=== PATIENT | female | born 1990 | race Hispanic/Latino ===

== ENCOUNTER 2016-11-02 10:01 | Outpatient (CLI) | payer OTHER ==
[2016-11-02 10:22] VITALS: BP 110/63
== END 2016-11-02 11:05 | disposition home or self-care (01) ==
LOC: TRG 10:01
PROVIDERS: ATTEND Obstetrics & Gynecology
DX: O47.1 False labor at or after 37 completed weeks of gestation (principal); Z3A.38 38 weeks gestation of pregnancy

== ENCOUNTER 2016-11-03 05:17 | Inpatient (IN) | payer OTHER ==
[2016-11-03] MEDS ORDERED: LACTATED RINGERS 1,000 ML ONE ×2 (05:54)
[2016-11-03] MEDS ORDERED: REGLAN ONE (05:54)
[2016-11-03] MEDS ORDERED: BICITRA ONE (05:54)
[2016-11-03] MEDS ORDERED: PITOCin/NS 20 UNIT/1000ML DRIP 20,000 MILLIUNITS/1,000 ML BAG IV ONE (05:54)
--- NOTE | 2016-11-03 05:54 | History and Physical Report ---
History of Present Illness Date of examination: 11/03/16 (active labor Pt yony for section due to prior poor obstetrical outcome - shoulder dystocia) Chief complaint: contractions History of present illness: EDC Confirmation: 11/12/2016 Gestational Age: 9 5/7 weeks Past History : 4 Term Births: 2 Living Children: 2 Para: 2 Aborta: 1 Elect. Ab: 1 # 1 Delivery date: 2006 Weeks Gestation: 6 Delivery type: EAB Comments: no complications # 2 Delivery date: 04/2009 Weeks Gestation: 39 Delivery type: Anesthesia type: epidural Delivery location: [facility] Infant Sex: Female weight: 8-7 Comments: difficult delivery Pt states she crowned a long time # 3 Delivery date: 11/2012 Weeks Gestation: 40 Delivery type: Anesthesia type: none Delivery location: [place] Infant Sex: Female weight: 10-.5 Comments: broken clavical / shoulder dystocia Risk Factors: Smoked Tobacco Use: Current every day smoker Cigarettes: Yes -- 3 cigs a day pack(s) per day,Smokeless Tobacco Use: Never Counseled to quit/cut down: yes Passive smoke exposure: no Alcohol use: no Seatbelt use: 100 % Dietary Counseling: pn yes Past Medical History: CF carrier Past Surgical History: Negative Past Surgical History Past Medical History Surgery (Non-vp strategic partnerships): Negative Past Surgical History Abnormal PAP: negative OWEN Exposure: negative Infertility: negative Uterine Anomaly: negative Uterine Surgery (not C/S): negative Other Gynecologic Problems: negative Infection History Hx of STD: none Personal hx. of genital herpes: no Partner hx. of genital herpes: no Rash, Viral, or Febrile illness since last LMP? no Varicella/Chicken Pox Status: Previous Disease TB Risk: no Genetic History Congenital Heart Defect: Mom: no Dad: no Gabriela Disease: Mom: no Dad: no Thalassemia Mom: no Dad: no Neural Tube Defect Mom: no Dad: no Down's Syndrome Mom: no Dad: no Trent-Sachs Mom: no Dad: no Sickle Cell Disease/Trait Mom: no Dad: no Hemophilia Mom: no Dad: no Muscular Dystrophy Mom: no Dad: no Cystic Fibrosis Mom: yes Dad: no Comments: FOB needs to be tested - will have done with PCP Jada Chorea Mom: no Dad: no Mental Retardation Mom: no Dad: no Fragile X Mom: no Dad: no Other Genetic/Chromosomal Disorder Mom: no Dad: no Child w/other defect Mom: no Dad: no Enviromental Exposures Xray Exposure: no Medication, drug, or alcohol use since LMP: no Chemical/Other Exposure: no Exposure to Cat Liter: no Hx of Parvovirus (Fifth Disease): no Occupational Exposure to Children: none Active Medications: None Current Allergies (reviewed today): BACTRIM (Critical) Laboratory Results Date/Time Collected: 04/14/2016 Routine Urinalysis Leukocytes: negative Nitrite: negative Urobilinogen: negative Protein: Negative Blood: negative Ketone: negative Bilirubin: negative Glucose: Negative Urine HCG: positive Review of Systems General Denies fever, chills, sweats, anorexia, fatigue, weakness, malaise, weight loss and sleep disorder. Denies nausea, vomiting, headache, swelling of legs, abdominal pain, vaginal discharge, vaginal bleeding and contractions. Denies vaginal discharge, incontinence, dysuria, hematuria, urinary frequency, amenorrhea, menorrhagia, abnormal vaginal bleeding, pelvic pain, genital sores, decreased libido, painful periods, painful sex, urinary urgency, hot flashes, vaginal dryness, vaginal itching and vaginal odor. CV Denies chest pains, palpitations, syncope, dyspnea on exertion, orthopnea, PND and peripheral edema. Resp Denies cough, dyspnea at rest, excessive sputum, hemoptysis, wheezing and pleurisy. GI Denies nausea, vomiting, diarrhea, constipation, change in bowel habits, abdominal pain, melena, hematochezia, jaundice, gas/bloating, indigestion/ heartburn, dysphagia and odynophagia. Endo Denies cold intolerance, heat intolerance, polydipsia, polyphagia, polyuria and unusual weight change. Breast Denies left breast lump, right breast lump, nipple discharge, bloody discharge from nipple, breast pain, abnormal mammogram and breast enlargement. MS Denies back pain, joint pain, joint swelling, muscle cramps, muscle weakness, stiffness, arthritis, sciatica, restless legs, leg pain at night and leg pain with exertion. Derm Denies rash, itching, dryness and suspicious lesions. Neuro Denies paralysis, paresthesias, headache, seizures, tremors, vertigo, transient blindness, frequent falls, frequent headaches and difficulty walking. Psych Denies depression, anxiety, irritability and mood swings. Eyes Denies blurring, diplopia, irritation, discharge, vision loss, eye pain and photophobia. ENT Denies earache, ear discharge, tinnitus, decreased hearing, nasal congestion, nosebleeds, sore throat and hoarseness. Allergy Denies urticaria, allergic rash, hay fever and recurrent infections. Heme Denies abnormal bruising, bleeding and enlarged lymph nodes. PHYSICAL EXAM HEENT: PERRLA, normal conjunctiva, external nose and nasal mucosa normal, oropharynx clear Neck/Thyroid: supple, thyroid normal Skin no significant abnormal lesions or rashes Chest: respiratory effort normal, clear to auscultation Breasts: normal without skin changes or masses CV: regular, normal S1-S2, no murmur, no rub, no gallop Abdomen: normal bowel sounds, soft, nontender, no HSM Musculoskeletal: grossly normal ROM in joints, no joint tenderness or muscle weakness Neuro: grossly normal DTRs, sensation, strength, cranial nerves Extremities: no clubbing, cyanosis, or edema NURSING TECHN Exams Vulva/Vagina: No lesions, normal BUS, normal rugae Cervix: No lesions; no cervical motion tenderness Uterus: normal size and position, midline, mobile Adnexae: no masses or tenderness Rectovaginal: no masses or tenderness Past History - Obstetrical History Expected Date of Delivery: 11/12/16 Actual Gestation: 38 Week(s) 5 Day(s) : 4 Para: 2 Hx # Term Pregnancies: 2 Induced : 1 Number of Living Children: 2 Medications and Allergies Allergies Allergy/AdvReac Type Severity Reaction Status Date / Time sulfamethoxazole Allergy Itching Verified 11/02/16 10:58 [From Bactrim] trimethoprim [From Bactrim] Allergy Itching Verified 11/02/16 10:58 - Vital Signs Vital signs: Vital Signs Pulse Pulse Ox 31 L 84 11/03/16 05:26 11/03/16 05:26 Temp Pulse Resp BP Pulse Ox 84 112/65 98 11/03/16 05:43 11/03/16 05:27 11/03/16 05:43 - Physical Exam Breasts: Positive: deferred Cardiovascular: Regular rate, Normal S1, Normal S2 Lungs: Positive: Normal air movement Abdomen: Positive: normal appearance, soft, normal bowel sounds. Negative: distention, tenderness Genitourinary (Female): Positive: normal external genitalia Vulva: both: normal Vagina: Positive: normal moisture. Negative: discharge Cervix: Negative: lesion, discharge Uterus: Positive: normal size, normal contour Adnexa: both: normal Anus/Rectum: Positive: normal perianal skin, heme negative. Negative: rectal mass, hemorrhoids Extremities: Positive: edema Deep Tendon Reflex Grade: Normal +2 - Obstetrical FHR: category 1 Uterine Contraction Monitor Mode: External Cervical Dilatation: 4 (per stock sheets cleaner inspector) Uterine Contraction Pattern: Regular Uterine Contraction Intensity: Moderate Results All other labs normal. HBsAg Screen Negative Negative *1 Rubella Antibodies, IgG 4.79 index Immune >0.99 *2 Non-immune <0.90 Equivocal 0.90 - 0.99 Immune >0.99 ABO Grouping A *3 Rh Factor Negative *4 Please note: Prior records for this patient's ABO / Rh type are not available for additional verification. Antibody Screen Negative Negative *5 RPR Non Reactive Non Reactive *6 WBC 8.2 x10E3/uL 3.4-10.8 *7 RBC 4.23 x10E6/uL 3.77-5.28 *8 Hemoglobin 12.1 g/dL 11.1-15.9 *9 Hematocrit 36.5 % 34.0-46.6 *10 MCV 86 fL 79-97 *11 MCH 28.6 pg 26.6-33.0 *12 MCHC 33.2 g/dL 31.5-35.7 *13 RDW 14.2 % 12.3-15.4 *14 Platelets 183 x10E3/uL 150-379 *15 Neutrophils 70 % *16 Lymphs 23 % *17 Monocytes 6 % *18 Eos 1 % *19 Basos 0 % *20 ! Immature Cells <No Reported Value> *21 Neutrophils (Absolute) 5.7 x10E3/uL 1.4-7.0 *22 Lymphs (Absolute) 1.9 x10E3/uL 0.7-3.1 *23 Monocytes(Absolute) 0.5 x10E3/uL 0.1-0.9 *24 Eos (Absolute) 0.1 x10E3/uL 0.0-0.4 *25 Baso (Absolute) 0.0 x10E3/uL 0.0-0.2 *26 ! Immature Granulocytes 0 % *27 ! Immature Grans (Abs) 0.0 x10E3/uL 0.0-0.1 *28 ! NRBC <No Reported Value> *29 Hematology Comments: <No Reported Value> *30 Tests: (2) HB Solu + Rflx Fra (876115) Hemoglobin (Hgb) Solubility Negative Negative *31 Tests: (3) Panel [id number] ([id number]) HIV Screen 4th Generation wRfx Non Reactive Non Reactive *32 Tests: (4) HCV Ab w/Rflx to Verification (721585) ! HCV Ab <0.1 s/co ratio 0.0-0.9 *33 Tests: (5) Comment: ([id number]) ! Comment: SPRCS *34 Non reactive HCV antibody screen is consistent with no HCV infection, unless recent infection is suspected or other evidence exists to indicate HCV infection. Assessment and Plan 25yo @ 38 weeks in active labor. Pt is scheduled for primary section due to previous delivery of macrosomic NB with shoulder dystocia - broken clavicle. SVE 4,80,-2 per stock sheets cleaner inspector. notified Prep pt for c /s He is enroute. Orders in EMR.Pt consented. Ask pt again if she desired to have vaginal delivery , she and SO decline and request to move forward with section.
[2016-11-03] MEDS ORDERED: PEPCID IV ONE ×2 (05:55→06:03)
[2016-11-03] MEDS ORDERED: ANCEF/STERILE WATER 2 GM/20 ML 2 GM/20 ML SYRINGE IV ONE (05:55)
[2016-11-03] MEDS: LACTATED RINGERS 1,000 ML IV SCH ×2 (06:00→06:30)
[2016-11-03] MEDS ORDERED: BICITRA PO ONE (06:03)
[2016-11-03] MEDS ORDERED: REGLAN IV ONE (06:03)
[2016-11-03 06:37] LABS: Basophils % (Auto) 0.2 % (0.0-1.8); Eosinophils % (Auto) 1.1 % (0.0-4.3); Hematocrit 30.9 % (30.3-42.9); Hemoglobin 10.4 gm/dl (10.1-14.3); Mean Corpuscular HGB Conc 34 % (30-34); Mean Corpuscular Hemoglobin 27 pg (28-32); Mean Corpuscular Volume 79 fl (79-97); Platelet Count 150 K/mm3 (140-440); Red Blood Count 3.92 M/mm3 (3.65-5.03); Red Cell Distribution Width 14.2 % (13.2-15.2); White Blood Count 8.7 K/mm3 (4.5-11.0)
[2016-11-03] MEDS ORDERED: MORPHINE ONE (06:48)
[2016-11-03] MEDS ORDERED: ANCEF/STERILE WATER 2 GM/20 ML 2 GM/20 ML SYRINGE IV NR (07:00)
[2016-11-03] MEDS ORDERED: PITOCin/NS 20 UNIT/1000ML DRIP 20 UNITS/1,000 ML BAG IV SCH ×2 (07:00→09:00)
[2016-11-03] MEDS ORDERED: NACL 0.9% IR ONE (07:10)
[2016-11-03] MEDS ORDERED: WATER FOR IRRIG STERILE IR ONE (07:10)
--- NOTE | 2016-11-03 08:36 | Operative Report ---
Operative Report Operative Report: Date of procedure: 11/03/2016 Pre-operative diagnosis: Intrauterine at 38 weeks 5 days with microsomia, previous with shoulder dystocia with clavicle fracture, active labor and desires permanent sterilization Post-operative diagnosis: Same Procedure name(s): Primary low transverse section with bilateral tubal ligation Surgeon: Tanmay Garcia MD Farm Adviser: Anesthesia: Spinal EBL: 900 mL Complications: None Findings: Had a male weight 8 lbs. 9 oz. Apgars 8 at 1 minute 9 at 5 minutes. Had normal appearing uterus with bilateral normal appearing adnexa Specimen(s): Portion of the right and left fallopian tube Procedure: The patient was brought to the operating room. A spinal was placed without any complications. She was then placed in left lateral tilt. Prepped and draped in the usual sterile manner. After testing for adequate anesthesia level, a Pfannenstiel incision was made through her previous scar. This incision was taken down to the fascia. The fascia was then nicked in the midline. This incision was extended out laterally with Jo scissors. The fascia was then sharply and bluntly from the underlying rectus muscles. The rectus muscles were bluntly and sharply . The peritoneum was then entered with the diesel truck crane operator's fingers. This incision was spread vertically with care not to damage the bladder below. The bladder flap was then formed sharply and bluntly with Metzenbaum scissors. The Alessio self- retaining tractor was then placed without any difficulty. A transverse incision was made in lower uterine segment. This incision was extended laterally with the operators fingers. The amniotic sac was then entered bluntly with the diesel truck crane operator's fingers. The was delivered from the vertex position. Bulb suction on the mother's abdomen. Cord was double clamped and cut. The infant was then passed to the nursery personnel who were in attendance. The above scores were given by the nursery personnel. The placenta was then bluntly removed. The uterus was then externalized and wiped clean the remaining products. The uterine incision had a small extension caudally on the right side with no evidence of bladder injury. The uterine incision Was closed in layers. The first incision was closed in a locking manner using 0 Vicryl. This was followed by imbricating stitch also with 0 Vicryl. Attention was then switched to the patient's fallopian tubes. Each fallopian tube was identified by its fimbriated end. A portion of each tube was grabbed with the Héctor clamp approximately 2-3 cm from the cornua. Each loop was double ligated with 0 plain suture. The loop were cut with Metzenbaum scissors. Each stump was found to be hemostatic and cauterized with the Bovie. Attention was then switched back to the uterine closure. This closure was hemostatic. The bladder flap was copiously irrigated and found to be hemostatic. The pelvis was copiously irrigated and found to be hemostatic. The uterus was then placed back to the patient's abdomen. The retractors were removed. The rectus muscles were inspected and found to be hemostatic. The fascia was then closed in a running manner using 0 Vicryl. This incision was hemostatic irrigation Bovie. The skin was reapproximated with 4-0 Vicryl subcuticularly. The patient tolerated procedure well. Her urine was clear. The was admitted to the well baby nursery. The patient was accompanied to recovery room in good condition. Instrument count correct 3.
[2016-11-03] MEDS ORDERED: NARCAN 0.4 MG/1 ML IV PRN ×2 (08:38→09:00)
[2016-11-03] MEDS ORDERED: ZOFRAN IV PRN ×2 (08:38→09:00)
[2016-11-03] MEDS ORDERED: TORADOL IV PRN ×2 (08:39→09:00)
[2016-11-03] MEDS: D5LR 1,000 ML IV SCH ×2 (08:59→17:43)
[2016-11-03] MEDS ORDERED: TUCKS PAD TP PRN (09:00)
[2016-11-03] MEDS ORDERED: DILAUDID IV PRN (09:00)
[2016-11-03] MEDS ORDERED: LANSINOH TP PRN (09:00)
[2016-11-03] MEDS ORDERED: SODIUM CHLORIDE FLUSH SYRINGE 10 ML IV NR ×2 (09:00)
[2016-11-03] MEDS ORDERED: MILK OF MAGNESIA PO PRN (09:00)
[2016-11-03] MEDS ORDERED: NEO SYNEPHRINE/NS Syringe(OR USE) IV ONE (09:00)
[2016-11-03] MEDS: ANCEF/NS 1 GM/50 ML 1 GM/50 ML BAG IV SCH ×2 (11:18→19:18)
--- NOTE | 2016-11-03 14:16 | Post Anesthesia Evaluation ---
- Post Anesthesia Evaluation Patient Participated: Yes Airway Patent: Yes Stable Respiratory Function: Yes Nausea/Vomiting: No Temp > 96.8F: Yes Pain Manageable: Yes Adequeate Hydration: Yes Anesthesia Complications: No Block Receding Appropriately: Yes Patient on Ventilator: No
[2016-11-03] MEDS: BENADRYL IV PRN ×2 (16:48→19:17)
[2016-11-03 22:28] LABS: Hematocrit 26.4 % (30.3-42.9)
[2016-11-04] MEDS: MOTRIN PO PRN ×3 (00:22→17:26)
--- NOTE | 2016-11-04 07:50 | Progress Note ---
Assessment and Plan patient resting in bed with infant, no complaints. Lochia scant, VSSAF, H& 9.6 /26.4 (anemia d/t acute blood loss, asymptomatic.) encouraged ambulation and continued use of ISS. Continue postop pathway. - Patient Problems (1) delivery delivered Current Visit: Yes Status: Acute Subjective - Subjective Date of service: 11/04/16 Principal diagnosis: postop day #1 s/p primary c/s Patient reports: appetite normal, voiding normally, pain well controlled, flatus , ambulating normally, no dizzy ambulation, no nauseated [place]: doing well, bottle feeding Objective - Vital Signs Latest vital signs: Vital Signs Temp Pulse Resp BP Pulse Ox 11/04/16 05:50 20 11/04/16 04:31 98.2 F 86 20 104/52 11/04/16 00:22 20 11/03/16 23:55 98.4 F 92 H 20 117/72 11/03/16 21:08 99.1 F 86 20 119/54 11/03/16 17:00 98.1 F 77 18 118/75 11/03/16 13:36 97.9 F 80 20 117/60 11/03/16 09:30 98.9 F 84 18 116/68 11/03/16 09:10 98.1 F 77 19 118/68 96 11/03/16 09:05 86 17 110/56 97 11/03/16 09:00 85 22 117/68 97 11/03/16 08:55 84 20 110/59 97 11/03/16 08:50 89 21 113/69 97 11/03/16 08:45 85 15 123/78 97 11/03/16 08:40 83 20 123/78 97 11/03/16 08:35 84 14 113/70 97 11/03/16 08:30 88 18 108/80 97 11/03/16 08:25 81 17 122/82 98 11/03/16 08:20 74 17 116/65 97 11/03/16 08:15 76 13 113/66 98 11/03/16 08:10 97.7 F 77 12 112/60 99 11/03/16 08:05 90 16 96 Intake and Output 11/03/16 11/04/16 11/04/16 22:59 06:59 14:59 Intake Total 1480 240 Output Total 600 1000 Balance 880 -760 Intake: IV 1000 D5lr 1,000 ml @ 125 mls/ 1000 hr IV DIRECT PEGGY Rx#: [id number] Oral 480 240 Output: Urine 600 1000 Indwelling Catheter 600 Void 1000 Other: Total, Intake Amount 240 240 Total, Output Amount 400 800 - Exam Breasts: Present: normal Cardiovascular: Present: Regular rate Lungs: Present: Clear to auscultation, Normal air movement Abdomen: Present: normal appearance, soft Vulva: both: normal Uterus: Present: normal, firm, fundal height at umbilicus Extremities: Present: normal Incision: Present: normal, dry, dressed (pt requested to have dressing removed after pain medication) - Labs Labs: Abnormal lab results 11/03/16 Range/Units 21:52 Hgb 9.0 L (10.1-14.3) gm/dl Hct 26.4 L (30.3-42.9) %
[2016-11-04] MEDS: PERCOCET 5/325 PO PRN ×2 (10:06→17:24)
--- NOTE | 2016-11-04 10:53 | Progress Note ---
Subjective Date of service: 11/04/16 Principal diagnosis: postop day #1 s/p primary c/s Interval history: 1st POD after Patient is in the bed, comfortable. Pain is well controlled with pain meds. Ambulated well. No residual neurological deficit. No pruritus. No anesthesia complications Objective - Constitutional Vitals: Vital Signs - 12hr 11/03/16 11/04/16 11/04/16 23:55 00:22 04:31 Temperature 98.4 F 98.2 F Pulse Rate 92 H 86 Respiratory 20 20 20 Rate Blood Pressure 117/72 104/52 11/04/16 11/04/16 05:50 08:00 Temperature 98.2 F Pulse Rate 83 Respiratory 20 18 Rate Blood Pressure 113/62 - Labs CBC & Chem 7: 11/03/16 21:52 Labs: Abnormal lab results 11/03/16 Range/Units 21:52 Hgb 9.0 L (10.1-14.3) gm/dl Hct 26.4 L (30.3-42.9) %
[2016-11-04] MEDS: MYLICON PO PRN ×2 (17:24→23:58)
[2016-11-05] MEDS: MOTRIN PO PRN ×4 (02:00→20:10)
[2016-11-05] MEDS: PERCOCET 5/325 PO PRN ×4 (02:03→20:11)
--- NOTE | 2016-11-05 08:39 | Progress Note ---
Assessment and Plan pt resting quietly on my arrival Requests to go home tomorrow. VSS FF below umb Lochia scant Incision intact, moist from perspiration. Will chg cover dressing more often H&H 12/22 drop r/t blood loss from surgery Pt is asymptomatic Doing well s/p section with tubal P: continue pathway More observant to incision being kept dry. plan d/c tomorrow Subjective - Subjective Date of service: 11/05/16 (pt req d/c tomorrow) Principal diagnosis: postop day #2s/p primary c/s Interval history: EDC Confirmation: 11/12/2016 Gestational Age: 9 5/7 weeks Past History : 4 Term Births: 2 Living Children: 2 Para: 2 Aborta: 1 Elect. Ab: 1 # 1 Delivery date: 2006 Weeks Gestation: 6 Delivery type: EAB Comments: no complications # 2 Delivery date: 04/2009 Weeks Gestation: 39 Delivery type: Anesthesia type: epidural [facility] Infant Sex: Female weight: 8-7 Comments: difficult delivery Pt states she crowned a long time # 3 Delivery date: 11/2012 Weeks Gestation: 40 Delivery type: Anesthesia type: none Delivery location: [place] Sex: Female weight: 10-.5 Comments: broken clavical / shoulder dystocia Risk Factors: Smoked Tobacco Use: Current every day smoker Cigarettes: Yes -- 3 cigs a day pack(s) per day,Smokeless Tobacco Use: Never Counseled to quit/cut down: yes Passive smoke exposure: no Alcohol use: no Seatbelt use: 100 % Dietary Counseling: pn yes Past Medical History: CF carrier Past Surgical History: Negative Past Surgical History Past Medical History Surgery (Non-etl database developer): Negative Past Surgical History Abnormal PAP: negative OWEN Exposure: negative Infertility: negative Uterine Anomaly: negative Uterine Surgery (not C/S): negative Other Gynecologic Problems: negative Infection History Hx of STD: none Personal hx. of genital herpes: no Partner hx. of genital herpes: no Rash, Viral, or Febrile illness since last LMP? no Varicella/Chicken Pox Status: Previous Disease TB Risk: no Genetic History Congenital Heart Defect: Mom: no Dad: no Gabriela Disease: Mom: no Dad: no Thalassemia Mom: no Dad: no Neural Tube Defect Mom: no Dad: no Down's Syndrome Mom: no Dad: no Trent-Sachs Mom: no Dad: no Sickle Cell Disease/Trait Mom: no Dad: no Hemophilia Mom: no Dad: no Muscular Dystrophy Mom: no Dad: no Cystic Fibrosis Mom: yes Dad: no Comments: FOB needs to be tested - will have done with PCP Paragonah Chorea Mom: no Dad: no Mental Retardation Mom: no Dad: no Fragile X Mom: no Dad: no Other Genetic/Chromosomal Disorder Mom: no Dad: no Child w/other defect Mom: no Dad: no Enviromental Exposures Xray Exposure: no Medication, drug, or alcohol use since LMP: no Chemical/Other Exposure: no Exposure to Cat Liter: no Hx of Parvovirus (Fifth Disease): no Occupational Exposure to Children: none Active Medications: None Current Allergies (reviewed today): BACTRIM (Critical) Laboratory Results Date/Time Collected: 04/14/2016 Routine Urinalysis Leukocytes: negative Nitrite: negative Urobilinogen: negative Protein: Negative Blood: negative Ketone: negative Bilirubin: negative Glucose: Negative Urine HCG: positive Review of Systems General Denies fever, chills, sweats, anorexia, fatigue, weakness, malaise, weight loss and sleep disorder. Denies nausea, vomiting, headache, swelling of legs, abdominal pain, vaginal discharge, vaginal bleeding and contractions. Denies vaginal discharge, incontinence, dysuria, hematuria, urinary frequency, amenorrhea, menorrhagia, abnormal vaginal bleeding, pelvic pain, genital sores, decreased libido, painful periods, painful sex, urinary urgency, hot flashes, vaginal dryness, vaginal itching and vaginal odor. CV Denies chest pains, palpitations, syncope, dyspnea on exertion, orthopnea, PND and peripheral edema. Resp Denies cough, dyspnea at rest, excessive sputum, hemoptysis, wheezing and pleurisy. GI Denies nausea, vomiting, diarrhea, constipation, change in bowel habits, abdominal pain, melena, hematochezia, jaundice, gas/bloating, indigestion/ heartburn, dysphagia and odynophagia. Endo Denies cold intolerance, heat intolerance, polydipsia, polyphagia, polyuria and unusual weight change. Breast Denies left breast lump, right breast lump, nipple discharge, bloody discharge from nipple, breast pain, abnormal mammogram and breast enlargement. MS Denies back pain, joint pain, joint swelling, muscle cramps, muscle weakness, stiffness, arthritis, sciatica, restless legs, leg pain at night and leg pain with exertion. Derm Denies rash, itching, dryness and suspicious lesions. Neuro Denies paralysis, paresthesias, headache, seizures, tremors, vertigo, transient blindness, frequent falls, frequent headaches and difficulty walking. Psych Denies depression, anxiety, irritability and mood swings. Eyes Denies blurring, diplopia, irritation, discharge, vision loss, eye pain and photophobia. ENT Denies earache, ear discharge, tinnitus, decreased hearing, nasal congestion, nosebleeds, sore throat and hoarseness. Allergy Denies urticaria, allergic rash, hay fever and recurrent infections. Heme Denies abnormal bruising, bleeding and enlarged lymph nodes. PHYSICAL EXAM HEENT: PERRLA, normal conjunctiva, external nose and nasal mucosa normal, oropharynx clear Neck/Thyroid: supple, thyroid normal Skin no significant abnormal lesions or rashes Chest: respiratory effort normal, clear to auscultation Breasts: normal without skin changes or masses CV: regular, normal S1-S2, no murmur, no rub, no gallop Abdomen: normal bowel sounds, soft, nontender, no HSM Musculoskeletal: grossly normal ROM in joints, no joint tenderness or muscle weakness Neuro: grossly normal DTRs, sensation, strength, cranial nerves Extremities: no clubbing, cyanosis, or edema CASING MIXER Exams Vulva/Vagina: No lesions, normal BUS, normal rugae Cervix: No lesions; no cervical motion tenderness Uterus: normal size and position, midline, mobile Adnexae: no masses or tenderness Rectovaginal: no masses or tenderness Patient reports: appetite normal, voiding normally, pain well controlled, ambulating normally : doing well Objective - Vital Signs Latest vital signs: Vital Signs Temp Pulse Resp BP 11/05/16 03:00 18 11/05/16 02:03 18 11/05/16 02:00 18 11/05/16 00:05 98.5 F 91 H 18 112/77 11/04/16 16:35 97.9 F 95 H 20 136/75 Intake and Output 11/04/16 11/05/16 11/05/16 22:59 06:59 14:59 Intake Total 240 360 Balance 240 360 Intake: Oral 240 Intake, Free Water 360 Other: Total, Intake Amount 240 # Voids Void 1 1 - Exam Breasts: Present: normal Cardiovascular: Present: Regular rate Lungs: Present: Normal air movement Abdomen: Present: normal appearance, soft, normal bowel sounds Vulva: both: normal Uterus: Present: normal, firm, fundal height below umbilicus Extremities: Present: normal, edema Deep Tendon Reflex Grade: Normal +2 Incision: Present: normal, dry (pt encouraged to chg dressing cover more often was wet on rounds this AM), intact
[2016-11-05] MEDS ORDERED: BOOSTRIX IM ONE (10:00)
[2016-11-05] MEDS: FEOSOL PO SCH ×2 (10:47→12:39)
[2016-11-05] MEDS: MYLICON PO PRN ×2 (14:31→20:11)
[2016-11-06] MEDS: PERCOCET 5/325 PO PRN ×3 (01:23→15:00)
[2016-11-06] MEDS: MOTRIN PO PRN ×3 (01:23→15:00)
[2016-11-06] MEDS: MYLICON PO PRN ×2 (01:26→13:30)
--- NOTE | 2016-11-06 07:56 | Progress Note ---
Assessment and Plan patient doing well, no complaints. Lochia scant, incision dry and intact, VSSAF , asymptomatic for anemia. Wound care discussed, plan for routine postop follow up in 1 week in out office. - Patient Problems (1) delivery delivered Current Visit: Yes Status: Acute (2) Anemia due to acute blood loss Current Visit: Yes Status: Acute Plan to address problem: asymptomatic increase dietary sources or iron and continue PNV Subjective - Subjective Date of service: 11/06/16 Principal diagnosis: postop day #3 s/p primary c/s Patient reports: appetite normal, voiding normally, pain well controlled, flatus , ambulating normally, no dizzy ambulation, no nauseated [place]: doing well, bottle feeding Objective - Vital Signs Latest vital signs: Vital Signs Temp Pulse Resp BP 11/06/16 00:20 98.7 F 89 20 119/75 11/05/16 16:15 98.0 F 86 19 128/92 11/05/16 12:45 97.8 F 90 18 123/73 11/05/16 08:40 98.4 F 86 19 110/62 Intake and Output 11/05/16 11/06/16 11/06/16 22:59 06:59 14:59 Intake Total 360 240 Balance 360 240 Intake: Oral 120 Intake, Free Water 240 240 Other: Total, Intake Amount 120 # Voids Void 1 1 - Exam Breasts: Present: normal Cardiovascular: Present: Regular rate Lungs: Present: Clear to auscultation, Normal air movement Abdomen: Present: normal appearance, soft, normal bowel sounds Vulva: both: normal Uterus: Present: normal, firm, fundal height at umbilicus Extremities: Present: normal Incision: Present: normal, dry, intact
--- NOTE | 2016-11-06 07:59 | Discharge Summary ---
Providers - Providers Date of Admission: 11/03/16 06:07 Date of discharge: 11/06/16 Attending physician: GANGA ARAGON 11/03/16 08:43 Consult to Sleeve Machine Tender [CONS] Routine Reason For Exam: Primary care physician: GANGA ARAGON Hospitalization Reason for admission: active labor Delivery: Procedure: primary low transverse Incision: normal, dry, intact Other procedures: none complications: none Discharge diagnosis: IUP at term delivered baby: male Hospital course: uncomplicated c/s delivery Condition at discharge: Good Disposition: DC-01 TO HOME OR SELFCARE - Discharge Diagnoses (1) delivery delivered Status: Acute (2) Anemia due to acute blood loss Status: Acute Plan - Discharge Medications Prescriptions: Ferrous Sulfate [Feosol 325 MG tab] 325 mg PO BID #60 tablet Ibuprofen [Motrin 800 MG tab] 800 mg PO Q6H PRN #30 tablet PRN Reason: Pain oxyCODONE /ACETAMINOPHEN [Percocet 5/325 mg] 1 - 2 tab PO Q4H PRN #30 tablet PRN Reason: Pain, Moderate - Provider Discharge Summary Activity: routine, no sex for 6 weeks, no heavy lifting 4 weeks, no strenuous exercise Diet: routine Instructions: routine Additional instructions: [] Smoking cessation referral if applicable(refer to patient education folder for contact #) [] Refer to [facility] Booklet Call your doctor immediately for: * Fever > 100.5 * Heavy vaginal bleeding ( >1 pad per hour) * Severe persistent headache * Shortness of breath * Reddened, hot, painful area to leg or breast * Drainage or odor from incision. * Keep incision clean and dry at all times and follow doctor's instructions regarding bathing/showering - Follow up plan Follow up: GANGA ARAGON MD [Primary Care Provider] - 7 Days (Congratulations! Please call [phone] to schedule your postop visit and your son's circumcision in 1 week. bring EMLA cream to your son's appointment and await further instruction. Call for any questions or concerns.)
[2016-11-06] MEDS: FEOSOL PO SCH (11:22)
[2016-11-06 19:19] VITALS: BP 121/71
== END 2016-11-06 19:50 | disposition home or self-care (01) | DRG 765 ==
LOC: TRG 05:17 → APU 06:07 → OB 09:54
PROVIDERS: ADMIT Obstetrics & Gynecology; ATTEND Obstetrics & Gynecology
PROC: 0UL70ZZ Occlusion of Bilateral Fallopian Tubes, Open Approach (ICD-10-PCS; principal; 2016-11-03)
PROC: 10D00Z1 Extraction of Products of Conception, Low, Open Approach (ICD-10-PCS; principal; 2016-11-03)
PROC: 30233S1 Transfusion of Nonautologous Globulin into Peripheral Vein, Percutaneous Approach (ICD-10-PCS; 2016-11-03)
DX: O36.63X0 Maternal care for excessive fetal growth, third trimester, not applicable or unspecified (principal); D62 Acute posthemorrhagic anemia; Z3A.38 38 weeks gestation of pregnancy; Z37.0 Single live birth; Z30.2 Encounter for sterilization; O99.03 Anemia complicating the puerperium; Z88.2 Allergy status to sulfonamides; Z71.6 Tobacco abuse counseling; O99.334 Smoking (tobacco) complicating childbirth
CPT/HCPCS: 36415; 85014; 85018; 85025; 85461; 86850; 86900; 86901; 88302; J0690; J1170; J1200; J1885; J2270; J2370; J2590; J2765; J2790; J7120; J7121